=== PATIENT | female | born 1955 | race Caucasian/White ===

== ENCOUNTER → 2016-12-16 | Day surgery (SDC) | payer OTHER ==
[~2016-12-16] VITALS: Ht 149.9 cm; Wt 63.5 kg
[2016-12-16 09:42] VITALS: BP 155/81
[2016-12-16 15:40] VITALS: BP 145/74
== END | disposition home or self-care (01) ==
LOC: DS 09:19 → OR 11:00
PROVIDERS: Surgery
PROC: 0HBU0ZZ Excision of Left Breast, Open Approach (ICD-10-PCS; principal; 2016-12-16 11:00)
DX: C50.912 Malignant neoplasm of unspecified site of left female breast (principal); Z68.28 Body mass index [BMI] 28.0-28.9, adult
CPT/HCPCS: J0690; J1170; J2405; J3490